=== PATIENT | male | born 1965 | race Caucasian/White ===

== ENCOUNTER 2018-10-23 23:24 | Emergency (ER) | payer MEDICAID ==
[~2018-10-23] VITALS: Ht 180.3 cm; Wt 79.4 kg
[2018-10-23 23:24] VITALS: BP 135/87
[~2018-10-23 23:24] MED LIST: [UNRECOGNIZED DRUG - CODE] PO
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
--- NOTE | 2018-10-24 00:17 | NUR ---
XRAY AT BEDSIDE
[2018-10-24 00:42] VITALS: BP 132/81
== END 2018-10-24 00:42 ==
LOC: MED 23:24
DX: S80.212A Abrasion, left knee, initial encounter (principal); S80.211A Abrasion, right knee, initial encounter; S00.81XA Abrasion of other part of head, initial encounter; M79.604 Pain in right leg; Z02.89 Encounter for other administrative examinations; Z79.899 Other long term (current) drug therapy; V47.9XXA Unspecified car occupant injured in collision with fixed or stationary object in traffic accident, initial encounter; Y93.89 Activity, other specified; Y92.89 Other specified places as the place of occurrence of the external cause; Y99.8 Other external cause status
CPT/HCPCS: 73590; 99283; Q0092